=== PATIENT | female | born 1950 | race Two or more races ===

== ENCOUNTER 2016-06-10 11:43 | Emergency (ER) | payer MEDICAID ==
[2016-06-10 13:29] LABS: URINE BILIRUBIN NEGATIVE (NEGATIVE); URINE BLOOD TRACE (NEGATIVE); URINE GLUCOSE (UA) NEGATIVE (NEGATIVE); URINE LEUKOCYTE ESTERASE 1+ (NEGATIVE); URINE NITRITE NEGATIVE (NEGATIVE); URINE PROTEIN NEGATIVE (NEGATIVE); URINE UROBILINOGEN NORMAL (0-1 mg/dl)
[2016-06-10 13:30] LABS: URINE APPEARANCE CLEAR; URINE COLOR YELLOW
[2016-06-10 13:38] LABS: URINE RBC 0-1 /hpf
[2016-06-10 13:39] LABS: URINE BACTERIA FEW; URINE EPITHELIAL CELLS FEW /hpf
== END 2016-06-10 14:23 | disposition home or self-care (01) ==
LOC: ED 11:43
DX: R50.9 Fever, unspecified (principal)